=== PATIENT | male | born 1955 | race Caucasian/White ===

== ENCOUNTER 2020-11-23 06:35 | Emergency (ER) | payer BC ==
[~2020-11-23] VITALS: Ht 175.3 cm; Wt 83.9 kg
[2020-11-23 06:35] VITALS: BP_SYST 142
--- NOTE | 2020-11-23 06:47 | NUR ---
Patient to ER bed 8 to gown for evaluation. Side rails up.
--- NOTE | 2020-11-23 06:50 | NUR ---
Patient BIB by family from home. C/O abdominal pain x 1 month. Patient reported, had abdominal pain over one months , on and off. Patient states "It got worse this three days." Hx Hernia repair, Colonic Diverticulitis , Renal cyst, Hep C, HTN, HLD, Anxiety, GERD.
--- NOTE | 2020-11-23 06:50 | NUR ---
ER Dr. Thompson at bedside examining patient.
[2020-11-23] MEDS ORDERED: KETOROLAC TROMETHAMINE 30 MG VIAL IVP ONE (07:00)
--- NOTE | 2020-11-23 07:08 | NUR ---
Report given to MEGAN Quan and endorse care of patient.
[2020-11-23 07:14] LABS: BASOPHILS % (AUTO) 0.6 % (0.0-2.0); EOSINOPHILS # (AUTO) 0.4 K/uL (0.0-0.4); EOSINOPHILS % (AUTO) 5.2 % (0.0-4.0); HEMATOCRIT 40.3 % (36-54); HEMOGLOBIN 13.5 g/dL (14.0-18.0); LYMPHOCYTES # (AUTO) 2.1 K/uL (1.0-5.5); LYMPHOCYTES % (AUTO) 27.9 % (20.5-51.5); MEAN CORPUSCULAR HEMOGLOBIN 29 pg (27-31); MEAN CORPUSCULAR HGB CONC 34 % (32-36); MEAN CORPUSCULAR VOLUME 87 fL (79.0-98.0); MONOCYTES # (AUTO) 0.8 K/uL (0.0-1.0); MONOCYTES % (AUTO) 11.4 % (1.7-9.3); NEUTROPHILS # (AUTO) 4.1 K/uL (1.8-7.7); NEUTROPHILS % (AUTO) 54.9 % (40.0-70.0); PLATELET COUNT (AUTO) 187 K/uL (130-430); RED BLOOD CELL COUNT(AUTO) 4.65 MIL/uL (4.2-6.2); RED CELL DISTRIBUTION WIDTH 13.1 % (9.0-15.0); WHITE BLOOD COUNT (AUTO) 7.4 K/uL (4.8-10.8)
[2020-11-23] MEDS ORDERED: DICYCLOMINE HCL 10 MG CAPSULE PO ONE (07:15)
--- NOTE | 2020-11-23 07:15 | NUR ---
Assumed care of patient, report received from MEGAN Navarro. Pt currently resting in bed, Dr. Thompson at bedside, no acute distress noted.
--- NOTE | 2020-11-23 07:20 | NUR ---
# 18 gauge angiocath placed to EMILY. Use of asceptic technique. Opsite placed over site. Blood return noted. Flushed with 10 cc of normal saline. No evidence of infiltration noted. Patient tolerated well.
[2020-11-23] MEDS ORDERED: DICYCLOMINE HCL 10 MG/5 ML SOLUTION ONE (07:23)
[2020-11-23 07:27] LABS: BILIRUBIN,URINE NEGATIVE (NEGATIVE); BLOOD, URINE 1+ (NEGATIVE); CLARITY/URINE CLEAR (CLEAR); COLOR,URINE YELLOW (YELLOW); GLUCOSE,URINE NEGATIVE (NEGATIVE); KETONES,URINE NEGATIVE (NEGATIVE); LEUKOCYTE ESTERASE ,URINE NEGATIVE (NEGATIVE); NITRITE, URINE NEGATIVE (NEGATIVE); PH,URINE 5.5 (5.0-8.0); PROTEIN URINE NEGATIVE (NEGATIVE); UROBILINOGEN,URINE 0.2 (0.2-1.0)
[2020-11-23 07:28] LABS: CALCIUM 8.9 mg/dL (8.4-11.0); CREATININE 0.95 mg/dL (0.55-1.30); POTASSIUM 4.5 mmol/L (3.5-5.1)
[2020-11-23] MEDS ORDERED: DICYCLOMINE HCL 10 MG/5 ML SOLUTION PO ONE (07:30)
[2020-11-23 07:34] LABS: ALBUMIN 3.4 g/dL (3.4-4.8); TOTAL BILIRUBIN 0.8 mg/dL (0.0-1.0)
[2020-11-23 07:35] LABS: BACTERIA,URINE RARE /HPF (None Seen); MUCUS,URINE 1+ /LPF (None Seen); WBC,URINE 0-3 /HPF (0-3)
--- NOTE | 2020-11-23 07:45 | NUR ---
CT consent signed and placed in chart.
--- NOTE | 2020-11-23 08:09 | NUR ---
Patient transported to radiology via wheelchair, accompanied by staff.
[2020-11-23] MEDS ORDERED: DICY10CA13 PO (09:18)
[2020-11-23] MEDS ORDERED: IBUP-1969 PO (09:25)
--- NOTE | 2020-11-23 09:30 | NUR ---
Patient given written and verbal discharge instructions and verbalizes understanding. ER MD discussed with patient the results and treatment provided. Patient in stable condition. ID arm band removed. IV catheter removed intact and dressing applied, no active bleeding. Rx of motrin and Bendaryl given. Patient educated on pain management and to follow up with PMD. Pain Scale 0. Opportunity for questions provided and answered. Medication side effect fact sheet provided.
[2020-11-23 09:43] VITALS: BP_SYST 142
== END 2020-11-23 09:43 | disposition home or self-care (01) ==
LOC: SED 06:35
DX: K57.90 Diverticulosis of intestine, part unspecified, without perforation or abscess without bleeding (principal); R31.9 Hematuria, unspecified; Z79.899 Other long term (current) drug therapy
CPT/HCPCS: 36415; 76376; 80053; 81000; 83690; 85025; 96374; 99285; J1885; Q9967

== ENCOUNTER 2022-09-06 17:50 | Emergency (ER) | payer BC, OTHER ==
[~2022-09-06] VITALS: Ht 175.3 cm; Wt 81.6 kg
[~2022-09-06 17:50] MED LIST: DICY10CA13 PO; IBUP-1969 PO
--- NOTE | 2022-09-06 17:58 | NUR ---
Patient to ER bed 03 to gown for evaluation. Side rails up.
--- NOTE | 2022-09-06 17:59 | NUR ---
PT C/O OF RIGHT CALF PAIN, AMBULATED TO BED WITH STEADY GAIT
[2022-09-06 18:00] VITALS: BP_SYST 150
[2022-09-06] MEDS ORDERED: KETOROLAC TROMETHAMINE 60 MG/2 ML VIAL IM ONE ×2 (18:15→18:30)
--- NOTE | 2022-09-06 18:34 | NUR ---
SEEN BY DR. KIMBROUGH AT BEDSIDE PER DOCUMENTATION.
[2022-09-06] MEDS ORDERED: MORPHINE 4 MG INJ. 4 MG/ML VIAL IM ONE (18:45)
[2022-09-06] MEDS ORDERED: NAPR-690 PO (20:24)
[2022-09-06 20:33] VITALS: BP_SYST 124
--- NOTE | 2022-09-06 20:36 | NUR ---
Patient given written and verbal discharge instructions BY DR. KIMBROUGH and verbalizes understanding. ER MD discussed with patient the results and treatment provided. Patient in stable condition. ID arm band removed. Rx of NAPROXEN given. Patient educated on pain management and to follow up with PMD. Pain Scale 0/10. Opportunity for questions provided and answered. Medication side effect fact sheet provided.
== END 2022-09-06 20:33 | disposition home or self-care (01) ==
LOC: SED 17:50
DX: S86.812A Strain of other muscle(s) and tendon(s) at lower leg level, left leg, initial encounter (principal); I10 Essential (primary) hypertension; Z79.899 Other long term (current) drug therapy; X58.XXXA Exposure to other specified factors, initial encounter; Y93.89 Activity, other specified; Y92.89 Other specified places as the place of occurrence of the external cause; Y99.8 Other external cause status
CPT/HCPCS: 99285; 93971; 96372; J2270; J1885